=== PATIENT | female | born 1995 | race Caucasian/White ===

== ENCOUNTER 2018-01-12 18:15 | Emergency (ER) | payer OTHER ==
[2018-01-12 18:50] VITALS: PULSE 71; TEMP 97.9; BMI 20.6
[2018-01-12 19:02] LABS: URINE APPEARANCE SLCLOUDY; URINE BILIRUBIN NEGATIVE (<2.0 mg/dL); URINE COLOR YELLOW; URINE GLUCOSE (UA) NEGATIVE (NEGATIVE); URINE KETONE NEGATIVE (NEGATIVE); URINE LEUK ESTERASE 3+ (NEGATIVE); URINE NITRITE NEGATIVE (NEGATIVE); URINE PROTEIN NEGATIVE (NEGATIVE); URINE UROBILINOGEN 4.0 E.U/dl mg/dL (0.2-1.0)
[2018-01-12 19:04] LABS: HCG,QUALITATIVE URINE Negative
[2018-01-12 19:05] LABS: EPI CELLS RARE /HPF (FEW); URINE MUCUS RARE
--- NOTE | 2018-01-12 19:17 | PDOC ---
History of Present Illness - General Chief Complaint: Urinary Problem Stated Complaint: Urinary Problem Time Seen by Provider: 01/12/18 19:12 - History of Present Illness Initial Comments: 01/12/18 19:15 22-year-old female with past medical history for opioid dependence now on methadone presents for dysuria 2 weeks systemic symptoms Past History - Past Medical History Allergies/Adverse Reactions: Allergies Allergy/AdvReac Type Severity Reaction Status Date / Time No Known Allergies Allergy Verified 01/12/18 18:46 Home Medications: Ambulatory Orders Methadone [Dolophine -] 80 mg PO DAILY 01/12/18 Nitrofurantoin Monohyd/M-Cryst [Macrobid -] 100 mg PO BID #14 capsule 01/12/18 Phenazopyridine HCl [Pyridium] 200 mg PO TID #6 tablet 01/12/18 COPD: No - Suicide/Smoking/Psychosocial Hx Smoking History: Current every day smoker Information on smoking cessation initiated: No Review of Systems - Review of Systems : Yes: Dysuria *Physical Exam - Vital Signs Last Vital Signs Temp Pulse Resp BP Pulse Ox 97.9 F 71 16 104/45 L 99 01/12/18 18:48 01/12/18 18:48 01/12/18 18:48 01/12/18 18:48 01/12/18 18:48 - Physical Exam Comments: 01/12/18 19:15 HEAD: NC/AT EYES: Conjuntiva clear NEUROLOGIC: No gross sensory or motor deficits, NVID SKIN: Normal color and temperature no lesions or rashes Moderate Sedation - Procedure Monitoring Vital Signs: Procedure Monitoring Vital Signs Temperature 97.9 F 01/12/18 18:48 Pulse Rate 71 01/12/18 18:48 Respiratory Rate 16 01/12/18 18:48 Blood Pressure 104/45 L 01/12/18 18:48 O2 Sat by Pulse Oximetry (%) 99 01/12/18 18:48 ED Treatment Course - ADDITIONAL ORDERS Additional order review: Laboratory Results 01/12/18 18:51 Urine Color Yellow Urine Appearance Slcloudy Urine pH 5.0 Ur Specific [place] 1.019 Urine Protein Negative Urine Glucose (UA) Negative Urine Ketones Negative Urine Blood Negative Urine Nitrite Negative Urine Bilirubin Negative Urine Urobilinogen 4.0 e.u/dl H Ur Leukocyte Esterase 3+ H Urine WBC (Auto) 62 Urine RBC (Auto) 5 Ur Epithelial Cells Rare Urine Mucus Rare Urine HCG, Qual Negative *DC/Admit/Observation/Transfer Diagnosis at time of Disposition: UTI (urinary tract infection) - Discharge Dispostion Disposition: HOME Condition at time of disposition: Stable Decision to Admit order: No - Prescriptions Prescriptions: Nitrofurantoin Monohyd/M-Cryst [Macrobid -] 100 mg PO BID #14 capsule Phenazopyridine HCl [Pyridium] 200 mg PO TID #6 tablet - Referrals Referrals: Lucero Elliott MD [Staff Physician] - Luiz Bowling MD [Staff Physician] - Belinda Dave MD [Staff Physician] - Dung Rider MD [Staff Physician] - Marily Katz MD [Staff Physician] - Aria Hendrix MD [Staff Physician] - - Patient Instructions Printed Discharge Instructions: Urinary Tract Infection, DI for Urinary Tract Infection (UTI) Additional Instructions: Return to the emergency room should symptoms worsen or go unresolved. Please take the antibiotics as directed. Please follow-up with internal medicine I recommended for you in the next 2-3 days for further evaluation and treatment options. - Post Discharge Activity
[2018-01-12 19:18] VITALS: BP 113/55
== END 2018-01-12 19:21 | disposition home or self-care (01) ==
LOC: JERFT 18:15
DX: F11.20 Opioid dependence, uncomplicated (principal)
CPT/HCPCS: 81003; 81015; 84703; 87086; 87186; 99281-25